=== PATIENT | female | born 1985 | race Caucasian/White ===

== ENCOUNTER 2019-01-24 20:55 | Observation (INO) | payer OTHER ==
--- NOTE | 2019-01-24 21:13 | PDOC ---
Rapid Medical Evaluation Chief Complaint: Pain Time Seen by Provider: 01/24/19 21:09 Medical Evaluation: Allergies Allergy/AdvReac Type Severity Reaction Status Date / Time No Known Allergies Allergy Verified 01/24/19 21:10 Vital Signs Temp Pulse Resp BP Pulse Ox 98.8 F 101 H 16 157/98 99 01/24/19 21:08 01/24/19 21:08 01/24/19 21:08 01/24/19 21:08 01/24/19 21:08 01/24/19 21:11 Pt c/o: upper abd pain x 1 month worse after meals, + nausea, irreg menses last month Pt on brief exam: no abd tenderness, vss Pt ordered for: labs and urine Pt to proceed to the ED Discharge Disposition - Diagnosis Abdominal pain - Referrals - Patient Instructions - Post Discharge Activity
--- NOTE | 2019-01-24 21:16 | PDOC ---
History of Present Illness - General Chief Complaint: Pain Stated Complaint: ABD PAIN Time Seen by Provider: 01/24/19 21:09 - History of Present Illness Initial Comments: The pt is a 33F w/ a history of arthritis who presents for evaluation of 1 month of abdominal pain. The pain is RUQ, cramping, starts 3-4 hours post- prandially, lasts for approx 3 hours, is associated with nausea and sometimes NBNB vomiting. She states she came in tonight because the pain was more intense tonight than previously. She also endorses associated decreased number in BMs per day. Reports that normally she has 3 BMs per day and has recently been having 1-2 per day. Denies blood in her stool. She has tried taking Ibuprofen for her pain with minimal relief. Denies fevers/chills, BOWMAN, vision changes, chest pain, trouble breathing, diarrhea, blood in stool, dysuria, hematuria 01/24/19 22:05 Past History - Past Medical History Allergies/Adverse Reactions: Allergies Allergy/AdvReac Type Severity Reaction Status Date / Time No Known Allergies Allergy Verified 01/24/19 21:10 Home Medications: Ambulatory Orders NK [No Known Home Medication] 01/24/19 COPD: No - Suicide/Smoking/Psychosocial Hx Smoking History: Never smoked Have you smoked in the past 12 months: No Information on smoking cessation initiated: No Hx Alcohol Use: No Drug/Substance Use Hx: No Review of Systems - Review of Systems Able to Perform ROS?: Yes Comments:: GENERAL/CONSTITUTIONAL: No fever or chills. No weakness HEAD, EYES, EARS, NOSE AND THROAT: No change in vision. No ear pain or discharge. No sore throat CARDIOVASCULAR: No chest pain or shortness of breath RESPIRATORY: Denies cough, hemoptysis GENITOURINARY: No dysuria, frequency, or change in urination MUSCULOSKELETAL: No joint or muscle swelling or pain. No neck or back pain SKIN: No rash NEUROLOGIC: No headache, vertigo, loss of consciousness, or change in strength/ sensation ENDOCRINE: No increased thirst. No abnormal weight change HEMATOLOGIC/LYMPHATIC: No anemia, easy bleeding, or history of blood clots ALLERGIC/IMMUNOLOGIC: No hives or skin allergy 01/24/19 21:15 *Physical Exam - Vital Signs Last Vital Signs Temp Pulse Resp BP Pulse Ox 98.8 F 101 H 16 157/98 99 01/24/19 21:08 01/24/19 21:08 01/24/19 21:08 01/24/19 21:08 01/24/19 21:08 - Physical Exam Comments: GENERAL: Awake, alert, and oriented to person/place/time, in no acute distress HEAD: No signs of trauma, normocephalic, atraumatic EYES: PERRLA, EOMI, sclera anicteric, conjunctiva clear ENT: Hearing grossly normal, nares patent, oropharynx clear without exudates. Moist mucosa LUNGS: No distress, speaks full sentences, clear to auscultation bilaterally HEART: Regular rate and rhythm, normal S1 and S2, no murmurs appreciated, peripheral pulses normal and equal bilaterally ABDOMEN: Soft, RUQ TTP w/o rebound or guarding, negative Guzman's, normoactive bowel sounds EXTREMITIES: Normal inspection, Normal range of motion, no edema. No clubbing or cyanosis NEUROLOGICAL: Cranial nerves II through XII grossly intact. Normal speech, no focal sensorimotor deficits SKIN: Warm, Dry 01/24/19 21:16 Moderate Sedation - Procedure Monitoring Vital Signs: Procedure Monitoring Vital Signs Temperature 98.8 F 01/24/19 21:08 Pulse Rate 101 H 01/24/19 21:08 Respiratory Rate 16 01/24/19 21:08 Blood Pressure 157/98 01/24/19 21:08 O2 Sat by Pulse Oximetry (%) 99 01/24/19 21:08 ED Treatment Course - LABORATORY CBC & Chemistry Diagram: 01/24/19 21:22 01/24/19 21:22 Medical Decision Making - Medical Decision Making The pt is a 33F who presents for evaluation of 1 month of post-prandail RUQ abdominal pain w/ associated N/V likely secondary to cholelithiasis/ cholecystitis POCUS w/ thickened gallbladder wall w/ stones in gallbladder, no pericholecystic fluid seen, neg sonographic Guzman's Lytes wnl Transaminitis Tbili wnl No anemia WBC 11.3 UA w/o evidence of UTI Plan for admission for cholecystitis, Dr. Howard consulted for General Surgery Will give Cefoxitin, IVF Pt NPO Pt signed out to [facility] Admitting 01/24/19 23:02 *DC/Admit/Observation/Transfer Diagnosis at time of Disposition: Acute cholecystitis Abdominal pain Qualifiers: Abdominal location: right upper quadrant Qualified Code(s): R10.11 - Right upper quadrant pain - Discharge Dispostion Condition at time of disposition: Good Decision to Admit order: Yes - Referrals - Patient Instructions - Post Discharge Activity
[2019-01-24 21:32] LABS: BASO % 0.6 % (0-2.0); EOS % 1.1 % (0-4.5); HEMATOCRIT 39.2 % (32.4-45.2); HEMOGLOBIN 13.9 GM/dL (10.7-15.3); LYMPH % 9.6 % (8-40); MCH 32.6 pg (25.7-33.7); MCHC 35.4 g/dl (32.0-36.0); MEAN CELL VOLUME 92.3 fl (80-96); MEAN PLT VOLUME 8.3 fl (7.5-11.1); MONO % 6.4 % (3.8-10.2); NEUT % 82.3 % (42.8-82.8); PLATELET COUNT 321 K/MM3 (134-434); RBC 4.25 M/mm3 (3.60-5.2); WHITE BLOOD COUNT 11.3 K/mm3 (4.0-10.0)
--- NOTE | 2019-01-24 21:34 | PDOC ---
Attending Attestation - HPI HPI: 01/24/19 22:19 The patient is a 33 year old female with a past medical history of rheumatoid arthritis here today for evaluation of abdomen pain. The patient reports that she has been having one month of right upper quadrant, intermittent, cramping with associated nausea and vomiting. Patient denies headache, lightheadedness. Denies fever, chills. Denies chest pain, shortness of breath. Denies diarrhea, abdominal pain. Allergies: NKA - Physicial Exam PE: 01/24/19 22:53 Constitutional: Awake, alert, oriented. No acute distress. Head: Normocephalic. Atraumatic Eyes: PERRL. EOMI. Conjunctivae are not pale. ENT: Mucous membranes are moist and intact. Posterior pharynx without exudates or erythema. Uvula midline. Neck: Supple. Full ROM. No lymphadenopathy. Cardiovascular: Regular rate. Regular rhythm. S1, S2 regular. Distal pulses are 2+ and symmetric. Pulmonary/Chest: No evidence of respiratory distress. Clear to auscultation bilaterally No wheezing, rales or rhonchi. Abdominal: Soft and non-distended. There is no tenderness. No rebound, guarding or rigidity. No organomegaly. No palpable masses. Good bowel sounds. Negative Smoaks sign. Back: No CVA tenderness. Musculoskeletal: No edema. No cyanosis. No clubbing. Full range of motion in all extremities. Nocalf tenderness. Radial/pedal pulses are intact and 2+ bilaterally Skin: Skin is warm and dry. No petechiae. No purpura. Neurological: Alert and oriented to person, place, and time. Cranial nerves II -XII are grossly intact. Normal speech. Strength is grossly symmetric. No sensory deficits. Psychiatric: Good eye contact. Normal interaction, affect and behavior. - Medical Decision Making 01/24/19 22:19 Documentation prepared by HUY Grier, acting as certified medical biller for Felicia Malone DO. <Kevin Ashby - Last Filed: 01/24/19 22:53> - Resident Resident Name: Art Abernathy - ED Attending Attestation I have performed the following: I have examined & evaluated the patient, The case was reviewed & discussed with the resident, I agree w/resident's findings & plan, Exceptions are as noted - Medical Decision Making 01/24/19 21:34 I, Dr. Felicia Malone, DO, attest that this document has been prepared under my direction and personally reviewed by me in its entirety. I further attest, that it accurately reflects all work, treatment, procedures and medical decision -making performed by me. 01/24/19 22:46 a/p: 33yo female with intermittent RUQ after eating assoc with n/v -suspect acute cholecystitis vs biliary colic vs pud -will send labs -ivf hydration -npo -zofran 01/24/19 22:49 bedside ultrasound shows a thickened gb wall and multiple stones in the gb no sonographic murphys elevated lfts, elevated wbc resident discussed the case with dr. bullard who will see patient in consult and plan to operate tomorrow will give cefoxitin microblog sent to [facility] for obs pt currently in ultrasound 01/24/19 22:55 01/24/19 23:35 case discussed with [facility] who accepts pt to service <Felicia Malone - Last Filed: 01/24/19 23:35>
[2019-01-24 21:52] LABS: EPI CELLS 8.1 /HPF (0-5); HYALINE CASTS 8 /hpf (0-8); PH,URINE 6.5 (5.0-8.0); URINE APPEARANCE CLOUDY; URINE BACTERIA 139.05 /hpf (NEGATIVE); URINE BILIRUBIN NEGATIVE (<2.0 mg/dL); URINE COLOR DK YELLOW; URINE GLUCOSE (UA) NEGATIVE (NEGATIVE); URINE KETONE TRACE (NEGATIVE); URINE LEUK ESTERASE TRACE (NEGATIVE); URINE NITRITE NEGATIVE (NEGATIVE); URINE PROTEIN NEGATIVE (NEGATIVE); URINE RBC 5 /hpf (0-4); URINE WBC 2 /hpf (0-5)
[2019-01-24 22:02] LABS: ALBUMIN 3.8 g/dl (3.4-5.0); ALK PHOS 255 U/L (45-117); ANION GAP 7 MMOL/L (8-16); BILIRUBIN,TOTAL 0.4 mg/dL (0.2-1); BLOOD UREA NITROGEN 9 mg/dL (7-18); CALCIUM 9.2 mg/dL (8.5-10.1); CHLORIDE 104 mmol/L (98-107); CO2 28 mmol/L (21-32); CREATININE 0.6 mg/dL (0.55-1.3); GLUCOSE,RANDOM 131 mg/dL (74-106); LIPASE 121 U/L (73-393); POTASSIUM 4.1 mmol/L (3.5-5.1); SGOT/AST 27 U/L (15-37); SGPT/ALT 112 U/L (13-61); SODIUM 138 mmol/L (136-145); TOT PROT 7.9 g/dl (6.4-8.2)
[2019-01-24 22:24] LABS: URINE CRYSTALS CALCIUM OXALATES /hpf
[2019-01-24 22:28] LABS: HCG,QUALITATIVE URINE Negative
[2019-01-24] MEDS ORDERED: SODIUM CHLORIDE 0.9% 500 ML INFUS.BAG IV ONE (22:48)
[2019-01-24] MEDS ORDERED: CEFOXITIN SODIUM 1 GM in DEXTROSE 5%-WATER - 100 ML IVPB ONE (22:48)
[2019-01-24] MEDS ORDERED: ONDANSETRON 4 MG/2 ML VIAL IVPUSH ONE (22:49)
[2019-01-24] MEDS ORDERED: ONDANSETRON 4 MG/2 ML VIAL ONE (22:52)
--- NOTE | 2019-01-24 22:53 | CONSULT ---
Consult Consult Specialty:: General Surgery Reason for Consultation:: acute cholecystitis - History of Present Illness Chief Complaint: abdominal pain History of Present Illness: 33 year old female PMH rheumatoid arthritis presented with abdomen pain. The patient reports that she has been having one month of right upper quadrant, intermittent, cramping with associated nausea and vomiting. She has a diet rich in dairy. She recound onset of pain soon after most meals. She is aware she has gallstones and has been previously suggested surgery but did not follow up. We were called to assess. - History Source History Provided By: Patient, Medical Record Limitations to Obtaining History: No Limitations - Past Medical History Rheumatology: Yes: Rheumatoid Arthritis (primarily hands) - Alcohol/Substance Use Hx Alcohol Use: No - Smoking History Smoking history: Never smoked Have you smoked in the past 12 months: No Home Medications - Allergies Allergies/Adverse Reactions: Allergies Allergy/AdvReac Type Severity Reaction Status Date / Time No Known Allergies Allergy Verified 01/24/19 21:10 - Home Medications Home Medications: Ambulatory Orders NK [No Known Home Medication] 01/24/19 Review of Systems - Review of Systems Constitutional: denies: Chills, Fever Eyes: denies: Blind Spots, Recent Change in Vision HENT: denies: Difficult Swallowing, Throat Pain Neck: denies: Pain on Movement, Tenderness Cardiovascular: denies: Chest Pain, Palpitations Respiratory: denies: Cough, SOB Gastrointestinal: reports: Abdominal Pain, Indigestion. denies: Constipation, Diarrhea Genitourinary: denies: Discharge, Dysuria Breasts: reports: No Symptoms Reported. denies: Pain Musculoskeletal: denies: Muscle Pain, Muscle Weakness Integumentary: denies: Eczema, Pruritis, Rash Neurological: denies: Seizure, Syncope Endocrine: denies: Unexplained Weight Gain, Unexplained Weight Loss Hematology/Lymphatic: denies: Easily Bruised, Excessive Bleeding Psychiatric: denies: Anxiety, Depression Physical Exam Vital Signs: Vital Signs Temperature 98.8 F 01/24/19 21:08 Pulse Rate 101 H 01/24/19 21:08 Respiratory Rate 16 01/24/19 21:08 Blood Pressure 157/98 01/24/19 21:08 O2 Sat by Pulse Oximetry (%) 99 01/24/19 21:08 Constitutional: Yes: Well Nourished, No Distress, Calm Eyes: Yes: Conjunctiva Clear, EOM Intact HENT: Yes: Atraumatic, Normocephalic Neck: Yes: Supple, Trachea Midline Cardiovascular: Yes: Regular Rate and Rhythm, S1, S2 Respiratory: Yes: Regular, CTA Bilaterally Gastrointestinal: Yes: Normal Bowel Sounds, Soft, Tenderness (RUQ), Tenderness, Epigastrium ...Rectal Exam: Yes: Deferred Renal/: No: CVA Tenderness - Left, CVA Tenderness - Right Breast(s): No: Breast Implants, Nipple Inversion Musculoskeletal: No: Joint Swelling, Muscle Pain, Muscle Weakness Extremities: No: Cool, Cyanosis Edema: No Peripheral Pulses WNL: Yes Integumentary: No: Jaundice, Laceration Wound/Incision: No: Clean/Dry, Well Approximated Neurological: Yes: Alert, Oriented Psychiatric: Yes: Alert, Oriented Labs: CBC, BMP 01/24/19 21:22 01/24/19 21:22 Imaging - Results Cat Scan: Report Reviewed, Image Reviewed Ultrasound: Report Reviewed, Image Reviewed Problem List - Problems (1) Calculus gallbladder and bile duct w/acute cholecystitis and obstructn Assessment/Plan: 33yo female with Acute calculous cholecystitis NPO and IVF hydration empiric IV antibiotics adequate analgesia Discussed with patient risks, benefits and alternatives of laparoscopic possible open ectomy, including but not limited to bleeding, infection, injury to adjacent structures, leak or injury, intraabdominal abscess, incisional hernia, need for further procedures, ; alternatives include antibiotics, delayed or no surgery - risks of this include failure of nonoperative therapy, perforation, sepsis, recurrence, . Patient desires to proceed with operation - will take to OR for above. Informed consent signed for same. Thank you for the opportunity to participate in the care of this patient. Code(s): K80.63 - CALCULUS OF GB AND BILE DUCT W ACUTE CHOLECYST W OBSTRUCTION (2) RUQ abdominal pain Code(s): R10.11 - RIGHT UPPER QUADRANT PAIN (3) Rheumatoid arthritis Code(s): M06.9 - RHEUMATOID ARTHRITIS, UNSPECIFIED Qualifiers: Rheumatoid arthritis location: hand Rheumatoid factor presence: unspecified presence Laterality: bilateral Qualified Code(s): M06.9 - Rheumatoid arthritis, unspecified (4) Acute cholecystitis Code(s): K81.0 - ACUTE CHOLECYSTITIS
[2019-01-24] MEDS ORDERED: SODIUM CHLORIDE 1,000 ML IV SCH (23:00)
--- NOTE | 2019-01-24 23:04 | PN ---
Teaching Attending Note Name of Resident: Robert Guzman ATTENDING PHYSICIAN STATEMENT I saw and evaluated the patient. I reviewed the resident's note and discussed the case with the resident. I agree with the resident's findings and plan as documented. SUBJECTIVE: Seen and examined; please refer to resident note for further historical information. Briefly, this is a 33 y/o female presenting to the ER with a CC of abdominal pain. Has been present for 1 month, nothing makes it better or worse, and is associated with nausea and vomiting. US reveals thickened GB wall with multiple calculi; recommended HIDA if there was continued concern for acute cholecystitis. ER consulted Dr. Howard; appreciate expert opinion. 10 sys ROS done and negative aside from HPI PMH, PSH, Family hx, Social hx reviewed Medications reviewed; pending reconciliation Home Medications Medication Instructions Recorded NK [No Known Home Medication] 01/24/19 OBJECTIVE: VS, labs, imaging reviewed NAD, AAO, resting in bed NC AT EOMI PERRLA RRR s1/2 no mgr Tender, negative jackson's, ND w/ +BS Lungs CTAB, w/ sym exp CN2-12 wnl, no fnd [place] neck deformaties Normal mood, appropriate behavior US reviewed; discussed report in HPI Labs reviewed; elevated alk phos and ALT with minor increase leuks noted ASSESSMENT AND PLAN: Patient is a 33 y/o female presenting with abdominal pain found to have transaminitis and potential cholecystitis. 1) Potential Cholecystitis -Given abx in the ER; will empirically cover with ceftriaxone and levaquin and reassess need once more data obtained. -Followup sgy consult; HIDA ordered per radiology recs -Pain and nausea control; NPO for potential procedure -Trend CMP 2) Transaminitis -Elevated Alk phos and ALT; normal bili and lipase. Will trend CMP and check GGT for completeness. No ductal dilation on US. If continues to increase, etc would be reasonable to involve GI. 3) Hx RA -Noted; no flare at this time. Not documented in chart as being on any DMARDs. Can refer to rheum as OP. Finger deformaties noted on exam. FENA -LR@100 -PRN replete -NPO for procedure -As tolerated Full Code
[2019-01-25] MEDS ORDERED: MORPHINE SULFATE 2 MG/ML VIAL IVPUSH PRN
[2019-01-25] MEDS ORDERED: LACTATED RINGERS SOLUTION 1,000 ML IV SCH
[2019-01-25] MEDS ORDERED: ONDANSETRON 4 MG/2 ML VIAL IVPB PRN (00:04)
--- NOTE | 2019-01-25 00:11 | HP ---
<Robert Guzman - Last Filed: 01/25/19 08:11> CHIEF COMPLAINT: Abdominal pain PCP:Dr Mendoza HISTORY OF PRESENT ILLNESS: 33 year old female with pmhx of RA, RF presented to the hsospital with one month history of RUQ abdominal pain worsening today 08/15 prompted her to come to ED , pain hes been on and off for last month few hours after food , associated with N and she reports vomiting last week , denies any fever, chills , constipation , headache , blurry vision , sore throat , recent cold or runny nose , denies any cp, sob , palpitation . denies any urinary symptoms. ER course was notable for: (1)US abdomen (2)CBC, CMP (3) Recent Travel:denies PAST MEDICAL HISTORY: PAST SURGICAL HISTORY: 4 Social History: Smoking:denies Alcohol:denies Drugs: denies Family History: Dm , HTN Allergies No Known Allergies Allergy (Verified 01/24/19 21:10) HOME MEDICATIONS: Home Medications Medication Instructions Recorded NK [No Known Home Medication] 01/24/19 REVIEW OF SYSTEMS Nausea CONSTITUTIONAL: Absent: fever, chills, diaphoresis, generalized weakness, malaise, loss of appetite, weight change HEENT: Absent: rhinorrhea, nasal congestion, throat pain, throat swelling, difficulty swallowing, mouth swelling, ear pain, eye pain, visual changes CARDIOVASCULAR: Absent: chest pain, syncope, palpitations, irregular heart rate, lightheadedness , peripheral edema RESPIRATORY: Absent: cough, shortness of breath, dyspnea with exertion, orthopnea, wheezing, stridor, hemoptysis GASTROINTESTINAL: Absent: abdominal pain, abdominal distension, nausea, vomiting, diarrhea, constipation, melena, hematochezia GENITOURINARY: Absent: dysuria, frequency, urgency, hesitancy, hematuria, flank pain, genital pain MUSCULOSKELETAL: Absent: myalgia, arthralgia, joint swelling, back pain, neck pain SKIN: Absent: rash, itching, pallor HEMATOLOGIC/IMMUNOLOGIC: Absent: easy bleeding, easy bruising, lymphadenopathy, frequent infections ENDOCRINE: Absent: unexplained weight gain, unexplained weight loss, heat intolerance, cold intolerance NEUROLOGIC: Absent: headache, focal weakness or paresthesias, dizziness, unsteady gait, seizure, mental status changes, bladder or bowel incontinence PSYCHIATRIC: Absent: anxiety, depression, suicidal or homicidal ideation, hallucinations. PHYSICAL EXAMINATION Vital Signs - 24 hr 01/24/19 01/24/19 21:08 23:45 Temperature 98.8 F 98.9 F Pulse Rate 101 H Pulse Rate [ 88 Left Radial] Respiratory 16 18 Rate Blood Pressure 157/98 Blood Pressure 133/88 [Left Arm] O2 Sat by Pulse 99 99 Oximetry (%) GENERAL: AAOx3 in NAD , rheumatoid deformitis B/L hand , swan neck finger , HEAD: NC/AT EYES: EOMI, Conjunctiva clear, sclera anicteric ENT: moist mucous membrane NECK: Supple, no JVD LUNGS: CTA B/L, no crackles no wheezing no accessory muscle use. HEART: RRR, NSR, normal s1, s2, no M/R/G ABDOMEN: Soft, ND, NT, +BS 4 Q, no CVA Tenderness LOWER EXTREMITIES: no edema, +2DP pulse, NEUROLOGICAL: No focal deficit. Normal speech. gait not observed. PSYCHIATRIC: Cooperative. Good eye contact. Appropriate mood and affect. SKIN: Warm, dry, Laboratory Results - last 24 hr 01/24/19 01/24/19 01/24/19 21:22 21:22 21:26 WBC 11.3 H RBC 4.25 Hgb 13.9 Hct 39.2 MCV 92.3 MCH 32.6 MCHC 35.4 RDW 13.0 Plt Count 321 MPV 8.3 Absolute Neuts (auto) 9.3 H Neutrophils % 82.3 Lymphocytes % 9.6 Monocytes % 6.4 Eosinophils % 1.1 Basophils % 0.6 Nucleated RBC % 0 Sodium 138 Potassium 4.1 Chloride 104 Carbon Dioxide 28 Anion Gap 7 L BUN 9 Creatinine 0.6 Creat Clearance w eGFR 113.77 Random Glucose 131 H Calcium 9.2 Total Bilirubin 0.4 AST 27 ALT 112 H Alkaline Phosphatase 255 H Total Protein 7.9 Albumin 3.8 Lipase 121 Urine Color Dk yellow Urine Appearance Cloudy Urine pH 6.5 Ur Specific [place] 1.026 Urine Protein Negative Urine Glucose (UA) Negative Urine Ketones Trace H Urine Blood Negative Urine Nitrite Negative Urine Bilirubin Negative Urine Urobilinogen 1.0 Ur Leukocyte Esterase Trace Urine WBC (Auto) 2 Urine RBC (Auto) 5 Urine Casts (Auto) 8 U Epithel Cells (Auto) 8.1 Urine Crystals (Auto) Calcium oxalates Urine Bacteria (Auto) 139.05 Urine HCG, Qual Negative CBC, BMP 01/24/19 21:22 01/24/19 21:22 US Abdomen : Gall bladder wall thicking with multiple calculi , consider HIDA scan ASSESSMENT/PLAN: 33 year old female with pmhx of Rheumatic fever , RA presented with one history of RUQ abdominal pain worsening today admitted to obs M/S for acute cholecystititis # Acute cholecystitis * US reviewed , HIDA scan in AM * NPO * Type and screen * PT, PTT, * IV fluids RL @ 125 * Abx proph * OR in AM * Surgery Dr Howard * Zofran for nausea * Morphine for pain * preganancy test negative # transaminitis * Trend Alp and AST , alt * if no improvement consult GI * likely fatty liver # RA # RF * not on any meds * F.O out pt # FEN * RL @ 125 * E: moniotr * NPO after med night # Proph * Dvts: Hep SQ TID , hold before surgery # Dispo * Obs M/S Visit type - Emergency Visit Emergency Visit: Yes ED Registration Date: 01/24/19 Care time: The patient presented to the Emergency Department on the above date and was hospitalized for further evaluation of their emergent condition. - New Patient This patient is new to me today: Yes Date on this admission: 01/25/19 - Critical Care Critical Care patient: No <Senthil Herndon - Last Filed: 02/25/19 21:43> Seen and examined; agree with above aside from what is supplemented in my own documentation. Repeated all good parts of exam, supervised all vital parts of patient care.
[2019-01-25 04:04] LABS: URINE APPEARANCE CLEAR; URINE BILIRUBIN NEGATIVE (<2.0 mg/dL); URINE COLOR YELLOW; URINE GLUCOSE (UA) NEGATIVE (NEGATIVE); URINE KETONE NEGATIVE (NEGATIVE); URINE LEUK ESTERASE NEGATIVE (NEGATIVE); URINE NITRITE NEGATIVE (NEGATIVE); URINE PROTEIN NEGATIVE (NEGATIVE); URINE UROBILINOGEN 0.2 mg/dL (0.2-1.0)
[2019-01-25 04:49] VITALS: BMI 25.0
[2019-01-25] MEDS ORDERED: HEPARIN NA (PORCINE) 5,000 UNITS/ML 1ML VIAL SQ SCH (06:00)
[2019-01-25 09:08] LABS: BASO % 0.5 % (0-2.0); HEMATOCRIT 35.8 % (32.4-45.2); HEMOGLOBIN 12.5 GM/dL (10.7-15.3); LYMPH % 15.8 % (8-40); MCH 32.3 pg (25.7-33.7); MCHC 34.9 g/dl (32.0-36.0); MEAN CELL VOLUME 92.3 fl (80-96); MEAN PLT VOLUME 8.8 fl (7.5-11.1); MONO % 10.1 % (3.8-10.2); NEUT % 71.6 % (42.8-82.8); PLATELET COUNT 270 K/MM3 (134-434); RBC 3.88 M/mm3 (3.60-5.2); WHITE BLOOD COUNT 7.4 K/mm3 (4.0-10.0)
[2019-01-25 09:21] LABS: INR 1.11 (0.83-1.09); PROTHROMBIN TIME (PATIENT) 13.1 SEC (9.7-13.0)
[2019-01-25 09:24] LABS: ACTIVATED PTT 32.6 SECONDS (25.2-36.5)
[2019-01-25 09:41] LABS: ALBUMIN 3.1 g/dl (3.4-5.0); ALK PHOS 192 U/L (45-117); AMYLASE 34 U/L (25-115); ANION GAP 7 MMOL/L (8-16); BILIRUBIN,TOTAL 0.5 mg/dL (0.2-1); BLOOD UREA NITROGEN 6 mg/dL (7-18); CHLORIDE 110 mmol/L (98-107); CO2 24 mmol/L (21-32); CREATININE 0.5 mg/dL (0.55-1.3); GLUCOSE,RANDOM 85 mg/dL (74-106); LIPASE 124 U/L (73-393); MAGNESIUM 2.2 mg/dL (1.8-2.4); POTASSIUM 4.1 mmol/L (3.5-5.1); SGOT/AST 20 U/L (15-37); SGPT/ALT 80 U/L (13-61); SODIUM 142 mmol/L (136-145); TOT PROT 6.4 g/dl (6.4-8.2)
--- NOTE | 2019-01-25 09:59 | PN ---
Physical Exam: SUBJECTIVE: Patient seen and examined at bedside- no acute events overnight patient states her pain is much better; she states its about a 1-2/10; she has not had any episodes of vomiting and denies any nausea/fevers/diarrhea- patient going to the OR this afternoon for choleycystectomy OBJECTIVE: Vital Signs Period Temp Pulse Resp BP Sys/Sales Pulse Ox Last 24 Hr 98.3 F-98.9 F 66-101 16-18 101-157/63-98 99-99 GENERAL: The patient is awake, alert, and fully oriented, in no acute distress. EYES: PEERLA: EOMI; no scleral icterus . NECK: no JVD; no lymphadenopathy LUNGS: CTA B/L; no rales, rhonchi or wheezing HEART: Regular rate and rhythm, S1, S2 without murmur, rub or gallop. ABDOMEN: Soft, slight tenderness upon palpation ; negative murphys sign; +BS in all 4 quadrants EXTREMITIES: 2+ pulses, warm, well-perfused, no edema. hands: swank neck deformities PSYCH: Normal mood, normal affect. SKIN: Warm, dry, normal turgor, no rashes or lesions noted Laboratory Results - last 24 hr 01/24/19 01/24/19 01/24/19 21:22 21:22 21:26 WBC 11.3 H RBC 4.25 Hgb 13.9 Hct 39.2 MCV 92.3 MCH 32.6 MCHC 35.4 RDW 13.0 Plt Count 321 MPV 8.3 Absolute Neuts (auto) 9.3 H Neutrophils % 82.3 Lymphocytes % 9.6 Monocytes % 6.4 Eosinophils % 1.1 Basophils % 0.6 Nucleated RBC % 0 PT with INR INR PTT (Actin FS) Sodium 138 Potassium 4.1 Chloride 104 Carbon Dioxide 28 Anion Gap 7 L BUN 9 Creatinine 0.6 Creat Clearance w eGFR 113.77 Random Glucose 131 H Calcium 9.2 Phosphorus Magnesium Total Bilirubin 0.4 AST 27 ALT 112 H Alkaline Phosphatase 255 H Total Protein 7.9 Albumin 3.8 Total Amylase Lipase 121 Urine Color Dk yellow Urine Appearance Cloudy Urine pH 6.5 Ur Specific [place] 1.026 Urine Protein Negative Urine Glucose (UA) Negative Urine Ketones Trace H Urine Blood Negative Urine Nitrite Negative Urine Bilirubin Negative Urine Urobilinogen 1.0 Ur Leukocyte Esterase Trace Urine WBC (Auto) 2 Urine RBC (Auto) 5 Urine Casts (Auto) 8 U Epithel Cells (Auto) 8.1 Urine Crystals (Auto) Calcium oxalates Urine Bacteria (Auto) 139.05 Urine HCG, Qual Negative 01/25/19 01/25/19 01/25/19 03:30 08:40 08:40 WBC 7.4 RBC 3.88 Hgb 12.5 Hct 35.8 MCV 92.3 MCH 32.3 MCHC 34.9 RDW 13.0 Plt Count 270 MPV 8.8 Absolute Neuts (auto) 5.3 Neutrophils % 71.6 Lymphocytes % 15.8 D Monocytes % 10.1 Eosinophils % 2.0 D Basophils % 0.5 Nucleated RBC % 0 PT with INR 13.10 H INR 1.11 H PTT (Actin FS) 32.6 Sodium Potassium Chloride Carbon Dioxide Anion Gap BUN Creatinine Creat Clearance w eGFR Random Glucose Calcium Phosphorus Magnesium Total Bilirubin AST ALT Alkaline Phosphatase Total Protein Albumin Total Amylase Lipase Urine Color Yellow Urine Appearance Clear Urine pH 8.0 D Ur Specific [place] 1.009 L Urine Protein Negative Urine Glucose (UA) Negative Urine Ketones Negative Urine Blood Negative Urine Nitrite Negative Urine Bilirubin Negative Urine Urobilinogen 0.2 Ur Leukocyte Esterase Negative Urine WBC (Auto) Urine RBC (Auto) Urine Casts (Auto) U Epithel Cells (Auto) Urine Crystals (Auto) Urine Bacteria (Auto) Urine HCG, Qual 01/25/19 08:40 WBC RBC Hgb Hct MCV MCH MCHC RDW Plt Count MPV Absolute Neuts (auto) Neutrophils % Lymphocytes % Monocytes % Eosinophils % Basophils % Nucleated RBC % PT with INR INR PTT (Actin FS) Sodium 142 Potassium 4.1 Chloride 110 H Carbon Dioxide 24 Anion Gap 7 L BUN 6 L Creatinine 0.5 L Creat Clearance w eGFR 140.41 Random Glucose 85 Calcium 8.0 L Phosphorus 3.0 Magnesium 2.2 Total Bilirubin 0.5 AST 20 ALT 80 H Alkaline Phosphatase 192 H Total Protein 6.4 Albumin 3.1 L Total Amylase 34 Lipase 124 Urine Color Urine Appearance Urine pH Ur Specific [place] Urine Protein Urine Glucose (UA) Urine Ketones Urine Blood Urine Nitrite Urine Bilirubin Urine Urobilinogen Ur Leukocyte Esterase Urine WBC (Auto) Urine RBC (Auto) Urine Casts (Auto) U Epithel Cells (Auto) Urine Crystals (Auto) Urine Bacteria (Auto) Urine HCG, Qual Active Medications Generic Name Dose Route Start Last Admin Trade Name Freq PRN Reason Stop Dose Admin Lactated Ringer's 1,000 mls @ 125 mls/hr 01/25/19 00:00 01/25/19 06:34 Lactated Ringers Solution IV 125 mls/hr ASDIR VICKIE Administration Ceftriaxone Sodium 1 gm/ 50 mls @ 100 mls/hr 01/25/19 10:00 Dextrose IVPB DAILY VICKIE Protocol Morphine Sulfate 2 mg 01/25/19 00:00 Morphine Sulfate IVPUSH Q4H PRN PAIN LEVEL 6-10 Ondansetron HCl 4 mg 01/25/19 00:04 Zofran Injection IVPB Q6H PRN NAUSEA ASSESSMENT/PLAN: 33 year old female with pmhx of Rheumatic fever , RA presented with a one month history of RUQ abdominal pain which was worsened yesterday and found to have on U/S a thicked GB with multiple calculi # Possible Cholecystitis -Ceftriaxone -Dr Howard consulted- going this afternoon to OR -Zofran PRN nausea -morphine 2 q4 PRN pain -LR @125mls/hr -NPO for OR #Transaminitis alk phos eleavated and ALT (down trending from admission labs) -no evidence of CBD dilation on U/S -GGT pending -monitor CMP #Rheumatoid Arthritis not currently in flare F/E/N LR @125mls monitor electrolytes NPO for procedure SCDs for now Problem List - Problems (1) Abdominal pain Code(s): R10.9 - UNSPECIFIED ABDOMINAL PAIN Qualifiers: Abdominal location: right upper quadrant Qualified Code(s): R10.11 - Right upper quadrant pain (2) Acute cholecystitis Code(s): K81.0 - ACUTE CHOLECYSTITIS (3) RUQ abdominal pain Code(s): R10.11 - RIGHT UPPER QUADRANT PAIN (4) Rheumatoid arthritis Code(s): M06.9 - RHEUMATOID ARTHRITIS, UNSPECIFIED Qualifiers: Rheumatoid arthritis location: hand Rheumatoid factor presence: unspecified presence Laterality: bilateral Qualified Code(s): M06.9 - Rheumatoid arthritis, unspecified Visit type - Emergency Visit Emergency Visit: Yes ED Registration Date: 01/24/19 Care time: The patient presented to the Emergency Department on the above date and was hospitalized for further evaluation of their emergent condition. - New Patient This patient is new to me today: Yes Date on this admission: 01/25/19 - Critical Care Critical Care patient: No
[2019-01-25] MEDS ORDERED: CEFTRIAXONE 1 GM in DEXTROSE 5%-WATER - 50 ML IVPB SCH (10:00)
[2019-01-25] MEDS ORDERED: DEXTROSE 5%-WATER - 50 ML IVPB ONE (10:28)
[2019-01-25] MEDS ORDERED: cefTRIAXone SODIUM 1 GM VIAL ONE (10:28)
--- NOTE | 2019-01-25 10:57 | EKG ---
Test Reason : Blood Pressure : / mmHG Vent. Rate : 081 BPM Atrial Rate : 081 BPM P-R Int : 158 ms QRS Dur : 080 ms QT Int : 362 ms P-R-T Axes : 048 030 022 degrees QTc Int : 420 ms NORMAL SINUS RHYTHM NORMAL ECG NO PREVIOUS ECGS AVAILABLE Confirmed by BRIA SIMMONS MD ([id number]) on 01/25/2019 10:57:35 AM Referred By: NAYAN GONZALEZ Confirmed By:BRIA SIMMONS MD
[2019-01-25] MEDS ORDERED: BUPIVACAINE HCL/PF 0.5% (5MG/ML) 10 ML VIAL ONE (11:59)
[2019-01-25] MEDS ORDERED: CEFOXITIN SODIUM 2 GM IVPB ONE (12:42)
[2019-01-25] MEDS ORDERED: cefOXitin SODIUM 1 GM VIAL (RESTRICTED TO ID) IVPB ONE (12:53)
[2019-01-25] MEDS ORDERED: fentaNYL CITRATE 250 MCG/5 ML VIAL ONE (12:55)
[2019-01-25] MEDS ORDERED: PROPOFOL 20 ML ONE (12:56)
[2019-01-25] MEDS ORDERED: MIDAZOLAM HCL 2 MG/2 ML SINGLE DOSE VIAL ONE (12:56)
[2019-01-25] MEDS ORDERED: KETOROLAC TROMETHAMINE 30 MG/1 ML VIAL ONE (14:35)
--- NOTE | 2019-01-25 14:39 | OP ---
Operative Note - Note: Operative Date: 01/25/19 Pre-Operative Diagnosis: Acute cholecystitis Operation: Laparoscopic cholecystectomy Findings: large distended gallbladder with signifincat edema and short white duct Post-Operative Diagnosis: Same as Pre-op Surgeon: Marco Antonio Howard Sports Doctor: Pancho Cee Anesthesia: General Specimens Removed: gallbladder and stones Estimated Blood Loss (mls): 30 Fluid Volume Replaced (mls): 800
[2019-01-25] MEDS ORDERED: ACETAMINOPHEN 1000 MG/100 ML VIAL (NON FORMULARY) IVPB ONE (14:41)
[2019-01-25] MEDS ORDERED: ACETAMINOPHEN INJECTION 100 ML IVPB ONE (14:50)
--- NOTE | 2019-01-25 15:08 | SURG ---
Surgery Bumper Operator Note Bumper Operator: Pancho Cee PA-C Date of Service: 01/25/19 Diagnosis: acute cholecystitis Procedure: laproscopic cholecystitis I was present for the entirety of the operative procedure. For further detail, please refer to operative report. Visit type - Case Type Case Type: ED Admission - Emergency Emergency Visit: Yes ED Registration Date: 01/24/19 Care time: The patient presented to the Emergency Department on the above date and was hospitalized for further evaluation of their emergent condition. - New patient This patient is new to me today: Yes Date on this admission: 01/25/19
[2019-01-25] MEDS: LACTATED RINGERS SOLUTION 1,000 ML IV SCH (15:09)
[2019-01-25] MEDS: MORPHINE SULFATE 2 MG/ML VIAL IVPUSH PRN (16:30)
--- NOTE | 2019-01-25 17:45 | PN ---
Teaching Attending Note Name of Resident: Mouna Armstrong ATTENDING PHYSICIAN STATEMENT I saw and evaluated the patient. I reviewed the resident's note and discussed the case with the resident. I agree with the resident's findings and plan as documented. SUBJECTIVE: No fever or chills. No BOWMAN . no abd pain at time of encounter at 11 am no nausea or vomiting . reported intermittent RUQ painin pase, last night it was severe and lasted 3 hours, relived by morphine and wasabsent at time of evaluation OBJECTIVE: NAD , dry MM CV: RRR, no MRg lungs: CTAB Ext : no edema or erythema. swan neck deformities in hands . Lungs: CTAB Abd: soft, NT, Nd , NL BS , neg Thomas's ASSESSMENT AND PLAN: 33 y/o lady with h/o RA who presented with RUQ painand was found to have acute cholecystitis 1- Acute cholecystitis. s/p CCY POD 0. - dc Abx - cont IVf - diet - pain control and nausea control - doubt CBd obstruction due to down-trending LFTS and resolution of her pain 2- RA: with significant deformity of her hands : f/u with rheum as out pt Possible Dc home tomorrow
[2019-01-25] MEDS: ONDANSETRON 4 MG/2 ML VIAL IVPUSH PRN (19:26)
[2019-01-26] MEDS: MORPHINE SULFATE 2 MG/ML VIAL IVPUSH PRN ×3 (00:06→08:05)
[2019-01-26] MEDS: ONDANSETRON 4 MG/2 ML VIAL IVPUSH PRN (04:05)
[2019-01-26] MEDS: LACTATED RINGERS SOLUTION 1,000 ML IV SCH ×3 (06:37→14:35)
[2019-01-26 08:37] LABS: HEMATOCRIT 33.9 % (32.4-45.2); MCH 32.7 pg (25.7-33.7); MCHC 35.3 g/dl (32.0-36.0); MEAN CELL VOLUME 92.5 fl (80-96); MEAN PLT VOLUME 8.6 fl (7.5-11.1); PLATELET COUNT 257 K/MM3 (134-434); RBC 3.66 M/mm3 (3.60-5.2); RDW 12.8 % (11.6-15.6)
[2019-01-26 09:08] LABS: ALBUMIN 2.8 g/dl (3.4-5.0); ALK PHOS 159 U/L (45-117); ANION GAP 5 MMOL/L (8-16); BILIRUBIN,TOTAL 0.7 mg/dL (0.2-1); BLOOD UREA NITROGEN 4 mg/dL (7-18); CALCIUM 8.3 mg/dL (8.5-10.1); CHLORIDE 105 mmol/L (98-107); CO2 27 mmol/L (21-32); CREATININE 0.4 mg/dL (0.55-1.3); GLUCOSE,RANDOM 88 mg/dL (74-106); MAGNESIUM 2.2 mg/dL (1.8-2.4); PHOSPHOROUS 3.5 mg/dL (2.5-4.9); POTASSIUM 3.9 mmol/L (3.5-5.1); SGOT/AST 68 U/L (15-37); SGPT/ALT 106 U/L (13-61); SODIUM 137 mmol/L (136-145); TOT PROT 6.1 g/dl (6.4-8.2)
[2019-01-26] MEDS ORDERED: cefTRIAXone SODIUM 1 GM VIAL ONE (09:35)
[2019-01-26] MEDS ORDERED: DEXTROSE 5%-WATER - 50 ML IVPB ONE (09:35)
[2019-01-26] MEDS: CEFTRIAXONE 1 GM in DEXTROSE 5%-WATER - 50 ML IVPB SCH (10:07)
[2019-01-26] MEDS ORDERED: BENZOCAINE/MENTH/CETYLPYRD CL 1 EACH LOZENGE MM PRN (13:23)
--- NOTE | 2019-01-26 13:23 | PN ---
Progress Note, Physician Chief Complaint: abdominal History of Present Illness: 33 year old female PMH rheumatoid arthritis presented with abdomen pain. The patient reports that she has been having one month of right upper quadrant, intermittent, cramping with associated nausea and vomiting. She has a diet rich in dairy. She recound onset of pain soon after most meals. She is aware she has gallstones and has been previously suggested surgery but did not follow up. We were called to assess. - Current Medication List Current Medications: Active Medications Fentanyl (Sublimaze Injection -) 50 mcg IVPUSH [id number] PRN PRN Reason: PAIN-PACU ORDER X 4 DOSES ONLY Ceftriaxone Sodium 1 gm/ (Dextrose) 50 mls @ 100 mls/hr IVPB DAILY VICKIE; Protocol Last Admin: 01/26/19 10:07 Dose: 100 mls/hr Lactated Ringer's (Lactated Ringers Solution) 1,000 mls @ 125 mls/hr IV ASDIR VICKIE Last Admin: 01/26/19 06:37 Dose: 125 mls/hr Ibuprofen (Motrin -) 400 mg PO Q6H PRN PRN Reason: FEVER Ondansetron HCl (Zofran Injection) 4 mg IVPUSH Q6H PRN PRN Reason: NAUSEA Last Admin: 01/26/19 04:05 Dose: 4 mg - Objective Vital Signs: Vital Signs Temperature 98.6 F 01/26/19 06:00 Pulse Rate 92 H 01/26/19 10:00 Respiratory Rate 16 01/26/19 10:00 Blood Pressure 113/67 01/26/19 10:00 O2 Sat by Pulse Oximetry (%) 99 01/26/19 00:00 Constitutional: Yes: Well Nourished, No Distress, Calm Eyes: Yes: Conjunctiva Clear, EOM Intact HENT: Yes: Atraumatic, Normocephalic Neck: Yes: Supple, Trachea Midline Cardiovascular: Yes: Regular Rate and Rhythm, S1, S2 Respiratory: Yes: Regular, CTA Bilaterally Gastrointestinal: Yes: Normal Bowel Sounds, Soft. No: Tenderness ...Rectal Exam: Yes: Deferred Genitourinary: No: CVA Tenderness - Left, CVA Tenderness - Right Musculoskeletal: No: Muscle Pain, Muscle Weakness Extremities: No: Cool, Cyanosis Edema: No Peripheral Pulses WNL: Yes Peripheral Pulses: Left Radial: 2+, Right Radial: 2+, Left Doralis Pedis: 2+, Right Dorsalis Pedis: 2+, Left Femoral: 2+, Right Femoral: 2+ Integumentary: No: Jaundice, Skin Tear Wound/Incision: Yes: Clean/Dry, Well Approximated, Sutures Intact, Open to air Neurological: Yes: Alert, Oriented Psychiatric: Yes: Alert, Oriented Labs: CBC, BMP 01/26/19 07:50 01/26/19 07:50 INR, PTT INR 1.11 (0.83-1.09) H 01/25/19 08:40 Problem List - Problems (1) Calculus gallbladder and bile duct w/acute cholecystitis and obstructn Assessment/Plan: 33yo female with Acute calculous cholecystitis POD#1 s/p Diagnostics Laparoscopy and placement of cholecystostomy resume diet empiric IV antibiotics adequate analgesia OOB D/C at discretion of primary Code(s): K80.63 - CALCULUS OF GB AND BILE DUCT W ACUTE CHOLECYST W OBSTRUCTION (2) RUQ abdominal pain Code(s): R10.11 - RIGHT UPPER QUADRANT PAIN (3) Rheumatoid arthritis Code(s): M06.9 - RHEUMATOID ARTHRITIS, UNSPECIFIED Qualifiers: Rheumatoid arthritis location: hand Rheumatoid factor presence: unspecified presence Laterality: bilateral Qualified Code(s): M06.9 - Rheumatoid arthritis, unspecified (4) Acute cholecystitis Code(s): K81.0 - ACUTE CHOLECYSTITIS
--- NOTE | 2019-01-26 14:16 | PN ---
Teaching Attending Note Name of Resident: Octavio Leiva ATTENDING PHYSICIAN STATEMENT I saw and evaluated the patient. I reviewed the resident's note and discussed the case with the resident. I agree with the resident's findings and plan as documented. SUBJECTIVE: reports pain at incision sites . No N/V, passed gas. tolerated diet No SOB or CP OBJECTIVE: NAD, MMM CV: RRR, no MRg Lungs: CTAB Ext: no edema or erythema. swan neck deformities in hands . Abd: soft, TTP in periumbilical area. nl BS. ND ASSESSMENT AND PLAN: 33 y/o lady with h/o RA who presented with RUQ painand was found to have acute cholecystitis 1- Acute cholecystitis. s/p CCY POD 1. has minimal pain at incision sites. Flatus +, tolerated diet LFTs are up today, this could be due to liver manipulation during sx. doubt impacted CBD stone. will repeat LFTs this afternoon If LFTS trend down will dc home . If worse, will get MRCP 2- RA: with significant deformity of her hands : f/u with rheum as out pt Dispo : as above
[2019-01-26] MEDS: IBUPROFEN 400 MG TABLET (FP) PO PRN ×2 (14:35→19:34)
[2019-01-26 14:42] LABS: ALBUMIN 3.1 g/dl (3.4-5.0); BILIRUBIN,DIRECT 0.3 mg/dL (0.0-0.2); BILIRUBIN,TOTAL 0.6 mg/dL (0.2-1); TOT PROT 6.9 g/dl (6.4-8.2)
--- NOTE | 2019-01-26 15:33 | PN ---
Physical Exam: SUBJECTIVE: Patient seen and examined at bedside. No overnight events. Complaining on incisional pain. Tolerateing advanced diet. Denies CP,BOWMAN, SOB, palpitations, nausea or vomiting. OBJECTIVE: Vital Signs Period Temp Pulse Resp BP Sys/Sales Pulse Ox Last 24 Hr 97.7 F-99.0 F 70-100 16-20 111-131/67-91 98-100 GENERAL: AAOx3, NAD HEAD: NCAT EYES: PERRL, EOMI, sclera anicteric, conjunctiva clear. No ptosis. ENT: moist mucous membranes. LUNGS: CTAB, no wheezes, no crackles, no accessory muscle use. HEART: RRR, S1, S2 without murmur, rub or gallop. ABDOMEN: Soft, incisional tenderness, nondistended, NABS, no guarding, no rebound, no hepatosplenomegaly, no masses. EXTREMITIES: 2+ pulses, warm, well-perfused, no edema. Hewitt neck deformity of hands bilat. NEUROLOGICAL: Cranial nerves II through XII grossly intact. Normal speech, gait not observed. PSYCH: Normal mood, normal affect. SKIN: Warm, dry, normal turgor, no rashes or lesions noted Laboratory Results - last 24 hr 01/26/19 01/26/19 01/26/19 07:50 07:50 14:05 WBC 10.0 RBC 3.66 Hgb 12.0 Hct 33.9 MCV 92.5 MCH 32.7 MCHC 35.3 RDW 12.8 Plt Count 257 MPV 8.6 Sodium 137 Potassium 3.9 Chloride 105 Carbon Dioxide 27 Anion Gap 5 L BUN 4 L Creatinine 0.4 L Creat Clearance w eGFR 181.64 Random Glucose 88 Calcium 8.3 L Phosphorus 3.5 Magnesium 2.2 Total Bilirubin 0.7 0.6 Direct Bilirubin 0.3 H AST 68 H 68 H ALT 106 H 114 H Alkaline Phosphatase 159 H 174 H Total Protein 6.1 L 6.9 Albumin 2.8 L 3.1 L Active Medications Generic Name Dose Route Start Last Admin Trade Name Freq PRN Reason Stop Dose Admin Benzocaine/Menthol 1 each 01/26/19 13:23 Cepacol Lozenge - MM PRN PRN SORE THROAT Fentanyl 50 mcg 01/25/19 15:41 Sublimaze Injection - IVPUSH [id number] PRN PAIN-PACU ORDER X 4 DOSES ONLY Ceftriaxone Sodium 1 gm/ 50 mls @ 100 mls/hr 01/26/19 10:00 01/26/19 10:07 Dextrose IVPB 100 mls/hr DAILY VICKIE Administration Protocol Lactated Ringer's 1,000 mls @ 125 mls/hr 01/25/19 14:47 01/26/19 14:35 Lactated Ringers Solution IV 125 mls/hr ASDIR VICKIE Administration Ibuprofen 400 mg 01/26/19 10:45 01/26/19 14:35 Motrin - PO 400 mg Q6H PRN Administration FEVER Ondansetron HCl 4 mg 01/25/19 14:47 01/26/19 04:05 Zofran Injection IVPUSH 4 mg Q6H PRN Administration NAUSEA ASSESSMENT/PLAN: 33 y/o F with pmhx of RA who presented with RUQ pain and was found to have acute cholecystitis POD #1 s/p CCY. Problem List - Problems (1) Acute cholecystitis Assessment/Plan: POD #1 s/p Lap CCY * pain well controlled. * IV pain meds switched to PO Ibuprofen. * Tolerating advanced diet. * LFT's remain elevated. Will trend and if do not improve by tomorrow labs will send for MRCP. (2) Rheumatoid arthritis Assessment/Plan: F/U with Rheum as outpatient. (3) DVT prophylaxis Visit type - Emergency Visit Emergency Visit: Yes ED Registration Date: 01/24/19 Care time: The patient presented to the Emergency Department on the above date and was hospitalized for further evaluation of their emergent condition. - New Patient This patient is new to me today: Yes Date on this admission: 01/26/19 - Critical Care Critical Care patient: No
[2019-01-27] MEDS: IBUPROFEN 400 MG TABLET (FP) PO PRN (05:02)
[2019-01-27 06:06] VITALS: TEMP 98.5
[2019-01-27] MEDS ORDERED: DEXTROSE 5%-WATER - 50 ML IVPB ONE (08:18)
[2019-01-27] MEDS ORDERED: cefTRIAXone SODIUM 1 GM VIAL ONE (08:18)
[2019-01-27 08:30] LABS: BASO % 0.3 % (0-2.0); EOS % 2.3 % (0-4.5); HEMATOCRIT 31.2 % (32.4-45.2); MCH 32.4 pg (25.7-33.7); MCHC 35.4 g/dl (32.0-36.0); MEAN CELL VOLUME 91.6 fl (80-96); MEAN PLT VOLUME 8.6 fl (7.5-11.1); MONO % 9.4 % (3.8-10.2); PLATELET COUNT 243 K/MM3 (134-434); WHITE BLOOD COUNT 9.6 K/mm3 (4.0-10.0)
[2019-01-27 08:51] LABS: ALBUMIN 2.6 g/dl (3.4-5.0); ALK PHOS 151 U/L (45-117); ANION GAP 7 MMOL/L (8-16); BILIRUBIN,TOTAL 0.6 mg/dL (0.2-1); BLOOD UREA NITROGEN 6 mg/dL (7-18); CALCIUM 7.6 mg/dL (8.5-10.1); CHLORIDE 108 mmol/L (98-107); CO2 25 mmol/L (21-32); CREATININE 0.5 mg/dL (0.55-1.3); GLUCOSE,RANDOM 74 mg/dL (74-106); POTASSIUM 4.2 mmol/L (3.5-5.1); SGOT/AST 39 U/L (15-37); SGPT/ALT 80 U/L (13-61); SODIUM 140 mmol/L (136-145)
[2019-01-27] MEDS: CEFTRIAXONE 1 GM in DEXTROSE 5%-WATER - 50 ML IVPB SCH (09:00)
[2019-01-27 09:04] LABS: ALBUMIN 2.6 g/dl (3.4-5.0); BILIRUBIN,DIRECT 0.3 mg/dL (0.0-0.2); BILIRUBIN,TOTAL 0.6 mg/dL (0.2-1)
[2019-01-27 11:28] VITALS: BP 129/85; PULSE 99
--- NOTE | 2019-01-27 14:49 | PN ---
Progress Note (short form) - Note Progress Note: Subjective:medical lead phone [phone] used to communicate minimal pain at incision sites . no vomiting. felt slightly nauseous after breakfast Objective: Vital Signs: Last Vital Signs Temp Pulse Resp BP Pulse Ox 98.5 F 99 H 18 129/85 98 01/27/19 06:00 01/27/19 10:00 01/27/19 10:00 01/27/19 10:00 01/27/19 00:00 Laboratory Results - last 24 hr 01/27/19 01/27/19 01/27/19 06:00 07:30 07:30 WBC 9.6 RBC 3.40 L Hgb 11.0 Hct 31.2 L MCV 91.6 MCH 32.4 MCHC 35.4 RDW 13.0 Plt Count 243 MPV 8.6 Absolute Neuts (auto) 7.3 Neutrophils % 76.0 Lymphocytes % 12.0 D Monocytes % 9.4 Eosinophils % 2.3 Basophils % 0.3 Nucleated RBC % 0 Sodium 140 Potassium 4.2 Chloride 108 H Carbon Dioxide 25 Anion Gap 7 L BUN 6 L Creatinine 0.5 L Creat Clearance w eGFR 140.41 Random Glucose 74 Calcium 7.6 L Total Bilirubin 0.6 0.6 Direct Bilirubin 0.3 H AST 39 H 39 H ALT 84 H 80 H Alkaline Phosphatase 144 H 151 H Total Protein 6.0 L 6.0 L Albumin 2.6 L 2.6 L Physical Exam: NAD, MMM CV: RRR, no MRg Lungs: CTAB Ext: no edema or erythema. swan neck deformities in hands . Abd: soft, TTP in periumbilical area. nl BS. ND ASSESSMENT AND PLAN: 33 y/o lady with h/o RA who presented with RUQ painand was found to have acute cholecystitis 1- Acute cholecystitis. s/p CCY POD 2. pain imporved . tolerated diet. LFTS stable with no increase. f/u with Dr. Last in 1 week - need repeat LFTS in 1 week referred to [facility] clinic as has no insurance discharge instructions were d/w her in details using medical lead phone ibuprofen for pain 2- RA: with significant deformity of her hands : f/u as outpt Dispo :dc home Visit type - Emergency Visit Emergency Visit: Yes ED Registration Date: 01/24/19 Care time: The patient presented to the Emergency Department on the above date and was hospitalized for further evaluation of their emergent condition. - New Patient This patient is new to me today: No - Critical Care Critical Care patient: No - Discharge Referral Referred to [facility] No
--- NOTE | 2019-01-28 17:40 | DS ---
Physical Exam: SUBJECTIVE: Patient seen and examined OBJECTIVE: PHYSICAL EXAM GENERAL: The patient is awake, alert, and fully oriented, in no acute distress. HEAD: Normal with no signs of trauma. EYES: PERRL, extraocular movements intact, sclera anicteric, conjunctiva clear. ENT: Ears normal, nares patent, oropharynx clear without exudates, moist mucous membranes. NECK: Trachea midline, full range of motion, supple. LUNGS: Breath sounds equal, clear to auscultation bilaterally, no wheezes, no crackles, no accessory muscle use. HEART: Regular rate and rhythm, S1, S2 without murmur, rub or gallop. ABDOMEN: Soft, nontender, nondistended, normoactive bowel sounds, no guarding, no rebound, no hepatosplenomegaly, no masses. EXTREMITIES: 2+ pulses, warm, well-perfused, no edema. NEUROLOGICAL: Cranial nerves II through XII grossly intact. Normal speech, gait not observed. PSYCH: Normal mood, normal affect. SKIN: Warm, dry, normal turgor, no rashes or lesions noted. LABS HOSPITAL COURSE: Date of Admission:01/24/19 33 y/omfemale presented with a 1 month history fo epigastric and RQ pain- she was known to have gallstones in the past adn there was suggestions made to her to get lap choley however she did not i the past. she came to [facility] ED and on u/s was found to have a distended and thicked GB with gallstonesd; no CBD dilation. she underwent a lap choley by dr howard- with complications. she was d/c home after 2 days Date of Discharge: 01/28/19 Minutes to complete discharge: 39 Discharge Summary Reason For Visit: ARTHRITIS ACUTE CHOLECYSTITIS Condition: Improved - Instructions Diet, Activity, Other Instructions: Postoperative instructions: You had a laparoscopic cholecystectomy on 01/25/[address] Marco Antonio Howard of [facility]. Activity: Resume your usual activities gradually, but no heavy exertion or lifting more than 10-15 pounds for 1 month. Remove dressings 48 hours after surgery; sticky tapes underneath will fall off by themselves. You may shower daily starting then, just pat the incision areas dry. No bath or swimming until skin incisions have healed. Eat lightly at first, but advance to your usual diet as tolerated. Pain: For pain, you may use and alternate Tylenol (acetaminophen) 1-2 pills and/ or ibuprofen 200 mg (1-3 pills) every 6 hours each as needed; this means that you can take one OR the other at 3-hour intervals. If you are prescribed a Tylenol/narcotic combination for severe pain, use it instead of plain Tylenol as needed and switch back when your pain starts decreasing. Do not take more than 4000mg of acetaminophen in a day. Take medications as prescribed or indicated on the labeling. Follow-up: Call Dr. Howard's office at [phone] to make your postop appointment (Monday in approximately 2 weeks after surgery). Clinic is held in the [facility] on the first floor of [facility]. Call the office if you have: * increasing pain not responsive to pain medication * fever of 101F or higher * vomiting * unusual or increasing bleeding or drainage from wounds * increasing redness or swelling at wound sites * inability to urinate Also, see your primary medical doctor within 1-2 weeks. - please call [facility] to schedule appointment with primary care doctor . call [phone] and ask to be transferred to the medical clinic at [facility]. book an appointment within a week - you need a follow up with rhumatology. please ask [facility] to refer you - take ibuprofen with food for pain as needed - you need repeat of your liver enzymes in a week Referrals: Marco Antonio Howard MD [Staff Physician] - 1 Week Disposition: HOME - Home Medications Comprehensive Discharge Medication List: Ambulatory Orders Ibuprofen 400 mg PO TID #20 tablet 01/27/19 Problem List - Problems (1) Abdominal pain Code(s): R10.9 - UNSPECIFIED ABDOMINAL PAIN Qualifiers: Abdominal location: right upper quadrant Qualified Code(s): R10.11 - Right upper quadrant pain (2) Acute cholecystitis Code(s): K81.0 - ACUTE CHOLECYSTITIS (3) RUQ abdominal pain Code(s): R10.11 - RIGHT UPPER QUADRANT PAIN (4) Rheumatoid arthritis Code(s): M06.9 - RHEUMATOID ARTHRITIS, UNSPECIFIED Qualifiers: Rheumatoid arthritis location: hand Rheumatoid factor presence: unspecified presence Laterality: bilateral Qualified Code(s): M06.9 - Rheumatoid arthritis, unspecified This patient is new to me today: No Emergency Visit: Yes ED Registration Date: 01/24/19 Care time: The patient presented to the Emergency Department on the above date and was hospitalized for further evaluation of their emergent condition. Critical Care patient: No - Discharge Referral Referred to [facility] No
--- NOTE | 2019-01-28 22:28 | OP ---
DATE OF OPERATION: 01/25/2019 PREOPERATIVE DIAGNOSIS: Acute cholecystitis. POSTOPERATIVE DIAGNOSIS: Acute cholecystitis. PROCEDURE: Laparoscopic cholecystectomy. ATTENDING SURGEON: Marco Antonio Howard MD FILLER FEEDER: Pancho Cee PA-C ANESTHESIA: General with local. Local consisted of 1% lidocaine, a total of 10 mL given at the port sites. ESTIMATED BLOOD LOSS: 30 mL. INTRAVENOUS FLUID ADMINISTERED: 800 mL. SPECIMEN: At the conclusion of the procedure is gallbladder with stones. BRIEF FINDINGS: Patient had a large distended gallbladder with significant edema; a short, wide cystic duct which was clipped with Weck clips. INDICATION: Patient is a 33-year-old female with history of biliary colic, known to have gallstones. This was her second attack. She was recommended surgery in the past and did not agree. She was explained the risks, benefits, and alternatives; signed informed consent; was taken for the procedure. DESCRIPTION OF PROCEDURE: Patient was brought to the operating room. She was placed in supine position on the operating table with the right arm tucked and the left arm extended 90 degrees perpendicular to the body's midline axis. The lower extremities had SCDs placed to compression. Patient received intravenous antibiotics prior to the start of surgery. She was induced with general anesthesia, endotracheally intubated without incident by Anesthesia. When stable, the anterior abdominal wall was shaved, prepped, and draped in standard surgical fashion. After a formal timeout with all parties in agreement with the procedure, a Gordon approach in the supraumbilical position. It was incised with a 15-blade scalpel, deepened and widened through the subcutaneous tissue. Care was then taken to dissect down to the fascia of the rectus which was elevated into the field and divided with Bovie cautery. Kochers were used to hold the ends. At which point, ojufga-jz-[id number] was laid in 0 Vicryl across the site to ablate it postoperatively. Pneumoperitoneum was then established with a 12-mm Gordon installed into the abdomen. When pneumoperitoneum was established to 15 mmHg, we began first with an inspection of the abdomen which appeared atraumatic on entry points, and the abdominal viscera appeared normal without injury. We then proceeded to identify the gallbladder which was large and distended. Additional operative ports were placed at the subxiphoid position and two in the right abdomen, 5-mm ports under direct visualization. With this established, we began first to grasp the gallbladder and retract it cranially towards the left shoulder, exposing the infundibulum. Significant edema was noted around the cystic structures. The cystic structures were isolated after taking down small amount of peritoneum, creating a window. Once encircling the cystic duct which was very large and dilated, milking a stone backwards into the gallbladder, Weck clips were selected to control it, and it was divided with EndoShears. After this was done, additional attention in the area revealed the cystic artery which was again controlled. The critical view of safety was identified. At which point, we began then by taking the remaining arterial structures with Weck clips as well. We proceeded then to divide the gallbladder from the hepatic bed using Bovie cautery and an L hook. This was done from the cystic structures towards the dome of the gallbladder. Care was taken then once the gallbladder was adequately removed from the liver bed to retrieve it using an Endo Catch bag after resiting the camera to the subxiphoid position. An Endo Catch bag, 10 mm, nylon was inserted into the umbilicus and then used to retrieve the gallbladder itself. There was minimal biliary spilling. After completing this, the pneumoperitoneum was re-established, and we inspected the liver bed for hemostasis. It was obtained using Bovie cautery in areas where necessary. The area was then irrigated gently and suctioned from the abdomen. Patient was restored to normal position and was stable throughout the procedure. She returned to Recovery in stable condition, was stable throughout. MD RAFAEL Guan/[id number]
--- NOTE | 2019-01-29 16:10 | PATH ---
Surgical Pathology Report Patient Name: RYAN REAGAN Med. Rec. #: [id number] /Age/Gender: 1985 (Age: 33) / F Account: [id number] Location: [address] [place] [address] Taken: 01/25/2019 Received: 01/28/2019 Reported: 01/29/2019 Physicians: Marco Antonio Howard M.D. PHYSICIAN EMERGENCY DEPT Specimen(s) Received GALLBLADDER Clinical History Acute cholecystitis Final Diagnosis GALLBLADDER, LAPAROSCOPIC CHOLECYSTECTOMY: ACUTE AND CHRONIC CHOLECYSTITIS WITH CHOLELITHIASIS. Electronically Signed Tierra Armenta M.D. Gross Description Received in formalin, labeled "gallbladder," is an 8.5 x 3.1 x 2.4 cm. gallbladder with a 0.2 cm. in length portion of cystic duct attached. The outer surface is lang-snow with a focal defect and varies from smooth to shaggy. The lumen contains lang bile as well as multiple irregular and fragmented choleliths ranging from 0.1-1.0 cm in greatest dimension. The mucosa is lang and focally eroded. The wall of the gallbladder ranges from 0.1-0.4 cm. in thickness. Sales Record Clerk sections are submitted in one cassette. 01/28/201901/28/2019
== END 2019-01-27 13:38 | disposition home or self-care (01) ==
LOC: JER 20:55 → JERBED 23:23 → J6S 01-25 00:12
PROVIDERS: ADMIT Internal Medicine; ATTEND Internal Medicine
PROC: 0FT44ZZ Resection of Gallbladder, Percutaneous Endoscopic Approach (ICD-10-PCS; principal; 2019-01-24)
PROC: 3E03329 Introduction of Other Anti-infective into Peripheral Vein, Percutaneous Approach (ICD-10-PCS; 2019-01-24)
PROC: 3E033NZ Introduction of Analgesics, Hypnotics, Sedatives into Peripheral Vein, Percutaneous Approach (ICD-10-PCS; 2019-01-24)
PROC: 3E0337Z Introduction of Electrolytic and Water Balance Substance into Peripheral Vein, Percutaneous Approach (ICD-10-PCS; 2019-01-24)
DX: K81.0 Acute cholecystitis (principal); K80.63 Calculus of gallbladder and bile duct with acute cholecystitis with obstruction; M06.9 Rheumatoid arthritis, unspecified; R74.0 Nonspecific elevation of levels of transaminase and lactic acid dehydrogenase [LDH]
CPT/HCPCS: 36415; 71045-TC-FY; 76705-TC; 80048; 80053; 80076; 81003; 82150; 83690; 83735; 84100; 84703; 85025; 85027; 85610; 85730; 88304-TC; 93005; 93010; 94010; 94760; 96365; 96375; 96376; 99283-25; G0378; J0131; J7030